=== PATIENT | female | born 1955 | race Caucasian/White ===

== ENCOUNTER 2021-02-26 17:25 | Emergency (ER) | payer SELFPAY ==
[2021-02-26] VITALS (7 sets, daily range): BP systolic 86–104; BP diastolic 46–67; PULSE 72–104; RESP 20; TEMP 36.6; O2SAT 96–100
--- NOTE | ~2021-02-26 | CT_ITS ---
EXAMINATION: CT diagnostic chest wo con DATE: 02/26/2021 18:51 INDICATION: abnormal CXR weakness with severe bryan prior open heart surgery 1994 TECHNIQUE: Computed tomography (CT) of the chest was performed without intravenous contrast. Addition al 3D reconstructions utilizing coronal maximum intensity projection (MIP) were performed. Automated exposure control and iterative reconstruction technique were employed. The dose-length product was 22 4.03 mGy-cm. COMPARISON: Chest radiograph dated 02/26/21 FINDINGS: Mild to moderate emphysema with upper lung predominance. Mild bibasilar atelectasis most prominent at the anterior left lung base. No pneumonia, pulmonary edema, pleural effusion or pneumothorax. No joshua picious pulmonary nodules. The nodular opacity seen on the prior chest radiograph likely represents a nipple shadow. Heart size is normal. Atherosclerotic coronary artery calcific lesions. No pericardia l effusion. Multiple surgical clips along the anteromedial left chest wall and along the aortic arch which is of normal caliber. No pathologically enlarged thoracic lymphadenopathy. 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 Chronic left posterior thoracot arianna with heterotopic ossification projecting the posterior fourth-sixth ribs. IMPRESSION: No suspicious pulmonary nodules or other acute cardiopulmonary disease. The previous noted nodular op acity at the lateral right lung is likely artifact of a nipple shadow. Reviewed, dictated and finalized at location A. IMPRESSION: No suspicious pulmonary nodules or other acute cardiopulmonary disease. The pre vious noted nodular opacity at the lateral right lung is likely artifact of a n ipple shadow.
--- NOTE | ~2021-02-26 | XR_ITS ---
EXAMINATION: XR chest 1V portable DATE: 02/26/2021 18:08 INDICATION: Asthma, weakness and severe acute renal insufficiency. TECHNIQUE: frontal view of the chest was obtained. COMPARISON: None FINDINGS: Subtle nodular opacity projecting over the lateral right midlung zone. No other airspace opacities, p leural effusion or pneumothorax. Cardiomediastinal silhouette is within normal limits for AP techniqu e. Multiple surgical clips project over the left side of the chest and mediastinum. Likely right infr aspinatus calcific tendinitis with dystrophic calcifications along the middle facet of the greater tu berosity. IMPRESSION: 1. Subtle nodular opacity lateral right midlung zone. Recommend further evaluation with chest CT. Reviewed, dictated and finalized at location A. IMPRESSION: 1. Subtle nodular opacity lateral right midlung zone. Recommend further evaluat ion with chest CT.
--- NOTE | 2021-02-26 17:51 | ECG_ITS ---
Measurements Intervals [place] Rate: 70 P: 61 AL: 193 QRS: 58 QRSD: 92 T: 48 QT: 401 QTc: 435 Interpretive Statements SINUS RHYTHM WITH SINUS ARRHYTHMIA LOW QRS VOLTAGE- DIFFUSE LEADS CANNOT RULE OUT SEPTAL INFARCT, AGE INDETERMINATE BASELINE WANDER- V2 ABNORMAL ECG Electronically Signed On 02-27-2021 6:00:38 CDT by Leroy Gutierrez D.O.
--- NOTE | 2021-02-26 17:54 | ED.GENADULT ---
HPI - General Adult General Chief complaint: Recheck/Abnormal Lab/Rx Stated complaint: Doctor wants pt to be seen for Kidney troubles Source: patient Mode of arrival: ambulatory Limitations: no limitations History of Present Illness HPI narrative: Gloria is a 65F with a PMH of SLE, asthma, TIA obesity, and sepsis 2/2 pneumonia a couple months ago that presented to the ED after her PCP called with abnormal labs. She has been nauseated and had one episode of non-bloody vomit but otherwise feels normal. She was told her K was 6.3, BUN was 159 and GFR was 7. Due to the nausea she has only been eating ice chips. She is not from the area. She was traveling from the [facility] to [place] when they got the call and came to the ER. Related Data Allergies Allergy/AdvReac Type Severity Reaction Status Date / Time No Known Allergies Allergy Verified 02/26/21 18:03 Review of Systems Constitutional: Constitutional: Reports no additional constitutional complaints Eyes: Eyes: Reports no additional eye complaints ENT: Reports system reviewed and no additional complaints, except as documented Cardiovascular: Cardiovascular: Reports no additional cardiovascular complaints Respiratory: Respiratory: Reports no additional respiratory complaints Gastrointestinal: Gastrointestinal: Reports as per HPI Genitourinary: Genitourinary: Reports no additional female genitourinary complaints Musculoskeletal: Musculoskeletal: Reports no additional musculoskeletal complaints Integumentary/Breasts: Skin/Breast: Reports system reviewed and no additional complaints, except as docu Neurologic: Reports system reviewed and no additional complaints, except as documented Psychiatric: Psychiatric: Reports no additional psychiatric complaints Endocrine: Endocrine: Reports no additional endocrine complaints Hematologic/Lymphatic: Hematologic/Lymphatic: Reports no additional hematologic/lymphatic complaints Allergic/Immunologic: Allergic/Immunologic: Reports no additional allergic/immunologic complaints [facility] Social History Social History Gender identity (if verbalized by the patient): Female Exam Const: General: no acute distress and alert Orientation/consciousness: patient oriented x3 Limitations: No altered mental status HENMT: Head: normal to inspection Other: Very dry mucous membranes Eyes: Conjunctivae: conjunctivae normal Pupils: Equal, round and reactive pupils present Neck: Neck: normal visual inspection Chest: Chest palpation & inspection: normal inspection of the chest Resp: Effort & Inspection: normal respiratory effort Auscultation: clear to auscultation bilaterally Cardio: Rate: regular rate Rhythm: regular rhythm GI: Inspection: non-distended GI Palp: Yes Soft to palpation, No Tenderness to palpation present (GI), No Guarding due to palpation present (GI) and No Rigid due to palpation : General: Yes no CVA tenderness Urinary Catheter: Urinary Catheter: patent and draining Back/Spine/Pelvis: Back: no CVA tenderness Skin: General skin exam: normal color Rashes: no rashes Neuro: General: patient oriented x3 and moves all extremities Extrem: General: normal to inspection Psych: Appearance: grossly normal Mental Status: mental status grossly normal Thought content: Yes Normal thought content present Course Course Emergency Course: Gloria was evaluated. As she appeared dry on exam with a low BP she was given fluids. I spoke with her PCP who confirmed her labs, and history but also reported that she has early cognitive impairment and CHF. EKG: NSR with a rate of 70, now voltage, normal axis, no ST elevation/depression Labs showed ESRD with elevated BUN, Cr, and very high potassium. Insulin, D50 and albuterol were ordered. Patel was contacted at 1908 and I spoke with Irina, the material handling warehouse supervisor who stated she would call back. Despite calling Julio
[2021-02-26] MEDS: SODIUM CHLORIDE 0.9% IV 1,000 ML 999 ML IV CONT (18:03)
[2021-02-26 18:18] LABS: Basophils Absolute Auto 0.12 K/mm3 (0.00-0.10); Basophils Percent Auto 1.1 % (0.0-1.0); Eosinophils Absolute Auto 0.95 K/mm3 (0.02-0.50); Hematocrit 45.5 % (35.0-49.0); Hemoglobin 14.2 g/dL (12.0-15.0); Immature Granulocyte Absolute 0.03 K/mm3 (0.00-0.00); Immature Granulocyte Percent A 0.3 % (0.0-0.0); Lymphocytes Absolute Auto 3.15 K/mm3 (1.10-4.50); Lymphocytes Percent Auto 29.9 % (18.0-42.0); Mean Corpuscular HGB Conc 31.2 g/dL (32.0-36.0); Mean Corpuscular Hemoglobin 25.8 pg (27.0-31.0); Mean Corpuscular Volume 82.6 fL (78.0-102.0); Mean Platelet Volume 9.7 fl (9.2-11.8); Monocytes Percent Auto 12.3 % (2.0-11.0); Neutrophils Percent Auto 47.4 % (50.0-70.0); Platelet Count Result 311 K/mm3 (150-420); Red Blood Count 5.51 M/mm3 (4.20-5.40); Red Cell Distribution Width 23.9 % (11.6-14.4); White Blood Count 10.5 K/mm3 (4.8-10.8)
[2021-02-26 18:26] LABS: Base Excess ABG -11.3 mmol/L (0-2); HCO3 ABG 15.8 mmol/L (23-29); Oxygen Content ABG 18.3 %vol (16.0-22.0); Oxygen Saturation ABG 91.8 % (95-97); Oxyhemoglobin 90.5 % (94-100); PCO2 ABG 39.9 mmHg (35-45); PO2 ABG 70.3 mmHg (80-90); Total Hemoglobin 14.4 g/dL (12.0-18.0); pH ABG 7.22 (7.35-7.45)
[2021-02-26 18:29] LABS: Device NASAL CANNULA; Modified Allen's Test Pass; Site Drawn LEFT RADIAL
[2021-02-26 18:38] LABS: Prothrombin Time 10.6 Seconds (9.50-12.10)
[2021-02-26 18:44] LABS: Lactic Acid Reflex 0.6 mmol/L (0.4-2.0)
[2021-02-26 18:50] LABS: Alanine Aminotransferase 75 U/L (14-59); Albumin Level 3.4 g/dL (3.4-5.0); Alkaline Phosphatase 78 U/L (46-116); Anion Gap 12 mmol/L (8-16); Aspartate Amino Transferase 27 U/L (15-37); Bilirubin,Total 0.4 mg/dL (0.00-1.00); Calcium 9.1 mg/dL (8.5-10.1); Carbon Dioxide 21 mmol/L (21-32); Chloride 100 mmol/L (98-108); Estimated CRCL calculation 9 ml/min; Estimated Glomerular Filt Rate 7; Glucose 115 mg/dL (70-99); Lipase 179 U/L (73-393); Magnesium 2.5 mg/dL (1.8-2.4); Sodium 133 mmol/L (136-145); Thyroid Stimulating Hormone 1.89 uIU/mL (0.36-3.74); Total Protein 8.6 g/dL (6.4-8.2); Troponin I 21.5 ng/L (0.00-60.4)
[2021-02-26 18:53] LABS: Blood Urea Nitrogen > 150 mg/dL (7-18)
[2021-02-26 18:54] LABS: Osmolality Calculated 326 mOsm/kg (285-295)
[2021-02-26] MEDS: ALBUTEROL SULFATE NEB 2.5 MG/3 ML INH 20 MG INHALATION (19:30)
[2021-02-26] MEDS: DEXTROSE 50% 25 GM/50 ML SYRINGE IV PUSH (19:30)
[2021-02-26] MEDS: INSULIN HUMAN REGULAR (*BKC) 100 UNITS/ML 10 UNITS IV PUSH (19:30)
== END 2021-02-26 20:35 | disposition left against medical advice (07) ==
PROVIDERS: Emergency Provider Family Medicine
DX: N17.9 Acute kidney failure, unspecified (principal)
CPT/HCPCS: 36415; 36600; 71045; 71250; 80053; 82805; 83605; 83690; 83735; 84443; 84484; 85025; 85610; 93005; 96361; 96374; 96375; 99283; 99284; J1815; J7030